=== PATIENT | male | born 2000 | race African-American/Black ===

== ENCOUNTER 2023-02-17 22:13 | Emergency (ER) | payer MEDICAID ==
[~2023-02-17] VITALS: Ht 177.8 cm; Wt 87.0 kg
[2023-02-17 22:50] VITALS: O2SAT 100
[2023-02-18] MEDS ORDERED: AMOX1TAB16 MT (00:11)
[2023-02-18 00:22] VITALS: BP 118/74; PULSE 80; RESP 18; TEMP 98.6
== END 2023-02-18 00:22 | disposition home or self-care (01) ==
LOC: ER 22:13
DX: K08.89 Other specified disorders of teeth and supporting structures (principal)
CPT/HCPCS: 99281; 99283

== ENCOUNTER 2023-10-22 09:45 | Emergency (ER) | payer MEDICAID, OTHER ==
[~2023-10-22] VITALS: Ht 180.3 cm; Wt 93.4 kg
[~2023-10-22 09:45] MED LIST: AMOX1TAB16 MT
[2023-10-22 09:51] VITALS: O2SAT 100
[2023-10-22 10:11] LABS: BASOPHILS % 0.7 % (0.0-2.0); EOSINOPHILS % 2.1 % (0.0-5.0); HEMATOCRIT. 44.6 % (42.0-52.0); HEMOGLOBIN. 14.6 g/dL (14.0-18.0); MEAN CORPUSCULAR HEMOGLOBIN 26.7 pg (28.0-32.0); MEAN CORPUSCULAR HGB CONC 32.8 g/dL (31.0-37.0); MEAN CORPUSCULAR VOLUME 81.4 fL (80.0-94.0); MONOCYTES % 5.1 % (2.0-8.0); NEUTROPHILS % 56.1 % (40.0-76.0); PLATELET 300 x1000/uL (130-400); RED BLOOD CELL COUNT 5.48 mill/uL (4.7-6.1); RED CELL DISTRIBUTION WIDTH 13.6 % (11.6-14.6)
[2023-10-22 10:34] LABS: CALCIUM 9.7 mg/dL (8.7-10.4); CARBON DIOXIDE 25 mEq/L (21-32); CHLORIDE 104 mEq/L (98-107); GLUCOSE 90 mg/dL (70-105); POTASSIUM 3.7 mEq/L (3.5-5.1); SODIUM 137 mEq/L (136-145); TROPONIN I HIGH SENSITIVITY 4 ng/L (3.0-53); UREA NITROGEN BLOOD 9 mg/dL (9-23)
[2023-10-22 11:12] LABS: CLARITY URINE CLEAR (CLEAR); COLOR URINE YELLOW (YELLOW); GLUCOSE URINE NEGATIVE (NEGATIVE); KETONES URINE NEGATIVE (NEGATIVE); LEUKOCYTE ESTERASE URINE TRACE (NEGATIVE); NITRITE URINE NEGATIVE (NEGATIVE); OCCULT BLOOD URINE NEGATIVE (NEGATIVE); PROTEIN URINE NEGATIVE (NEGATIVE); SPECIFIC GRAVITY URINE 1.022 (1.005-1.030); UROBILINOGEN URINE 0.2 E.U./dL (0.2-1.0)
[2023-10-22 11:25] LABS: BACTERIA URINE 1+; RBC URINE NONE SEEN /hpf (0-2); SQUAMOUS EPITHELIAL CELL URINE NONE SEEN /lpf (RARE/1+); YEAST URINE NONE SEEN
[2023-10-22 11:53] VITALS: BP 120/79; PULSE 57; RESP 18; TEMP 98.5
== END 2023-10-22 12:09 | disposition home or self-care (01) ==
LOC: ER 09:45
DX: B34.9 Viral infection, unspecified (principal)
CPT/HCPCS: 36415; 71045; 80048; 81003; 84484; 85025; 99284

== ENCOUNTER 2024-10-29 04:07 | Emergency (ER) | payer MEDICAID ==
[2024-10-29] MEDS ORDERED: AMOX1TAB16 MT (07:46)
[2024-10-29] MEDS ORDERED: OXYC-100 MT (07:47)
[2024-10-29] MEDS: KETOROLAC 30MG/ML VIAL IM STA (07:52)
[2024-10-29 07:58] VITALS: BP 122/87; PULSE 63; RESP 18; TEMP 36.8; O2SAT 98
== END 2024-10-29 07:59 | disposition home or self-care (01) ==
LOC: ER 04:07
DX: S02.5XXA Fracture of tooth (traumatic), initial encounter for closed fracture (principal); X58.XXXA Exposure to other specified factors, initial encounter; Y93.89 Activity, other specified; Y92.89 Other specified places as the place of occurrence of the external cause; Y99.8 Other external cause status
CPT/HCPCS: 99283; 96372; J1885